=== PATIENT | male | born 1945 | race Caucasian/White ===

== ENCOUNTER → 2021-10-07 | Outpatient (CLI) | payer MEDICARE, OTHER ==
--- NOTE | 2021-10-07 14:55 | Diagnostic Imaging Report ---
INDICATION: Low back pain. TIME OF EXAM: 1:24 p.m. FINDINGS: Three views of the lumbar spine were obtained. Curvature of the lumbar spine is normal. There is grade 1 spondylolisthesis of L5 on S1. There may be pars defects at the L5-S1 as well. There is multilevel degenerative disc disease with variable disc space narrowing and marginal spurring. No fractures are seen. There is lower lumbar facet arthropathy. IMPRESSION: Lumbar spondylosis and facet arthropathy. There appear to be pars defects at L5-S1 level with grade 1 spondylolisthesis of L5 on S1. Dictated by: Dictated on workstation # [id number]
--- NOTE | 2021-10-07 15:03 | Diagnostic Imaging Report ---
INDICATION: Low back pain. TIME OF EXAM: 1:23 PM Single view of the pelvis was obtained. Femoral acetabular alignment is normal bilaterally. There is some superior joint space narrowing of the left hip compatible with degenerative change. The femoral heads and necks are intact. No fractures are seen. Rami are intact. SI joints and symphysis are not widened. IMPRESSION: Degenerative changes of the left hip. No acute bony abnormality is detected. Dictated by: Dictated on workstation # [id number]
== END ==
LOC: RAD FS 13:11
PROVIDERS: ATTEND Nurse Practitioner
DX: M47.816 Spondylosis without myelopathy or radiculopathy, lumbar region (principal); M43.17 Spondylolisthesis, lumbosacral region; M16.12 Unilateral primary osteoarthritis, left hip
CPT/HCPCS: 72100; 72170

== ENCOUNTER → 2022-06-12 | Outpatient (CLI) | payer MEDICARE, OTHER ==
--- NOTE | 2022-06-12 16:45 | Diagnostic Imaging Report ---
INDICATION: Hip pain. TECHNIQUE/COMPARISON: Frontal and lateral lumbar radiographs are compared to 10/07/2021. 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 Hdz-lumbar spondylosis and facet arthrosis are chronic. Disc space narrowing is greatest at the L5-S1 level. Vertebral statures are stable and normal. There has been no change. IMPRESSION: Stable chronic degenerative changes and grade 1 L5 on S1 anterolisthesis. Dictated by: Dictated on workstation # [id number]
--- NOTE | 2022-06-12 16:58 | Diagnostic Imaging Report ---
INDICATION: Pain. COMPARISON: 10/07/2021. FINDINGS: There are arthritic changes to the left greater than right hips as well as degenerative disease to the lower lumbar spine. No bony avulsion or other fracture pattern. No mass effect upon the air-containing abdominal/pelvic hollow viscus. IMPRESSION: Chronic degenerative changes but no acute pathology is apparent. Dictated by: Dictated on workstation # [id number]
--- NOTE | 2022-06-12 19:16 | Diagnostic Imaging Report ---
INDICATION: Left hip pain AP and frog-leg views of left hip are obtained. There is mild marginal spurring of the hip joint. There is also mild cortical irregularity at the greater trochanter which is likely chronic in nature. No acute fracture seen. Mild lucency involving the subarticular aspect of the humeral head is likely related to subchondral cyst. IMPRESSION: Degenerative-type findings involve the left hip. There is no evidence of acute osseous abnormality. Dictated by: Dictated on workstation # [id number]
== END ==
LOC: RAD FS 14:43
PROVIDERS: ATTEND Nurse Practitioner
DX: M16.12 Unilateral primary osteoarthritis, left hip (principal); M47.817 Spondylosis without myelopathy or radiculopathy, lumbosacral region; M43.17 Spondylolisthesis, lumbosacral region
CPT/HCPCS: 72100; 72170; 73502

== ENCOUNTER 2022-12-12 21:36 | Emergency (ER) | payer MEDICARE, OTHER ==
--- NOTE | 2022-12-12 21:56 | ED General ---
General Chief Complaint: Trauma-Non Activation Stated Complaint: COVID+ Source of Information: Patient, EMS History of Present Illness Date Seen by Provider: Dec 12, 2022 Time Seen by Provider: 21:36 Initial Comments 77-year-old male presenting with complaints of generalized weakness and fatigue. He states that this started yesterday after he had been doing yard work. He was having generalized body aches and so his performed a home COVID test on him this afternoon. He was positive for COVID on that test. He has had weakness to the point that he has fallen as he feels like his equilibrium is off. He then was too weak to get back up without assistance. He had to call EMS for lift assist x2 today and once last night. EMS brought him in to be evaluated for his generalized weakness and COVID. Timing/Duration: 24 Hours Severity: Moderate Modifying Factors: worse with Movement Associated Systoms: No Chest Pain; Cough; No Diaphoresis, No Fever/Chills, No Headaches; Loss of Appetite, Malaise; No Nausea/Vomiting, No Rash, No Seizure, No Shortness of Air, No Syncope; Weakness Allergies and Home Medications Allergies Coded Allergies: No Known Drug Allergies (Unverified , 12/12/22) Patient Home Medication List Home Medication List Reviewed: Yes Review of Systems Review of Systems Constitutional: No chills; dizziness; No fever; malaise, weakness EENTM: nose congestion Respiratory: cough Cardiovascular: No chest pain Gastrointestinal: loss of appetite; No nausea, No vomiting Genitourinary: No dysuria Musculoskeletal: muscle pain (generalized body aches) Skin: No rash Psychiatric/Neurological: Denies Headache; Weakness (generalized weakness with frequent falls at home) Past Cpsptuf-Tudsvi-Oezwhf Hx Immunizations Up To Date Influenza Vaccine Up-to-Date: Yes; Up-to-Date First/Initial COVID19 Vaccinat: 2020 Second COVID19 Vaccination Adama: 2020 Third COVID19 Vaccination Date: 2020 Past Medical History Surgery/Hospitalization HX: Hypertension, BPH, Hyperlipidemia Physical Exam Vital Signs Vital Signs - First Documented 12/12/22 21:40 Temp 37.3 Pulse 107 Resp 18 B/P (MAP) 134/76 (95) Pulse Ox 98 O2 Delivery Room Air Capillary Refill : Height, Weight, BMI Height: '" Weight: lbs. oz. kg; BMI Method: General Appearance: No Apparent Distress, WD/WN HEENT: PERRL/EOMI, Pharynx Normal, Moist Mucous Membranes Neck: Full Range of Motion, Normal Inspection, Non Tender, Supple Respiratory: Chest Non Tender, Lungs Clear, Normal Breath Sounds, No Accessory Muscle Use, No Respiratory Distress Cardiovascular: No Murmur, Normal Peripheral Pulses, Tachycardia Gastrointestinal: Normal Bowel Sounds, No Pulsatile Mass, Non Tender, Soft Rectal: Deferred Extremity: Normal Capillary Refill, Normal Inspection, No Pedal Edema Neurologic/Psychiatric: Alert, Oriented x3 Skin: Normal Color, Warm/Dry, Other (Superficial abrasions to bilateral knees from fall on stairs at home.) Progress/Results/Core Measures Suspected Sepsis SIRS Temperature: Pulse: Respiratory Rate: Laboratory Tests 12/12/22 21:50: White Blood Count 5.7 Blood Pressure / Mean: Laboratory Tests 12/12/22 21:50: Creatinine 1.58H, INR Comment 1.0, Platelet Count 153, Total Bilirubin 0.8 Results/Orders Lab Results Laboratory Tests Test 12/12/22 21:50 12/12/22 23:05 Range/Units White Blood Count 5.7 4.3-11.0 10^3/uL Red Blood Count 4.82 4.30-5.52 10^6/uL Hemoglobin 15.5 13.3-17.7 g/dL Hematocrit 45 40-54 % Mean Corpuscular Volume 94 80-99 fL Mean Corpuscular Hemoglobin 32 25-34 pg Mean Corpuscular Hemoglobin Concent 34 32-36 g/dL Red Cell Distribution Width 13.3 10.0-14.5 % Platelet Count 153 130-400 10^3/uL Mean Platelet Volume 11.0 9.0-12.2 fL Immature Granulocyte % (Auto) 1 % Neutrophils (%) (Auto) 71 42-75 % Lymphocytes (%) (Auto) 8 L 12-44 % Monocytes (%) (Auto) 21 H 0-12 % Eosinophils (%) (Auto) 0 0-10 % Basophils (%) (Auto) 0 0-10 % Neutrophils # (Auto) 4.0 1.8-7.8 10^3/uL Lymphocytes # (Auto) 0.4 L 1.0-4.0 10^3/uL Monocytes # (Auto) 1.2 H 0.0-1.0 10^3/uL Eosinophils # (Auto) 0.0 0.0-0.3 10^3/uL Basophils # (Auto) 0.0 0.0-0.1 10^3/uL Immature Granulocyte # (Auto) 0.0 0.0-0.1 10^3/uL Neutrophils % (Manual) 61 % Lymphocytes % (Manual) 6 % Monocytes % (Manual) 19 % Band Neutrophils 14 % Platelet Estimate NORMAL Blood Morphology Comment NORMAL Prothrombin Time 13.9 12.2-14.7 SEC INR Comment 1.0 0.8-1.4 Activated Partial Thromboplast Time 29 24-35 SEC Sodium Level 136 135-145 MMOL/L Potassium Level 4.0 3.6-5.0 MMOL/L Chloride Level 103 98-107 MMOL/L Carbon Dioxide Level 22 21-32 MMOL/L Anion Gap 11 5-14 MMOL/L Blood Urea Nitrogen 22 H 7-18 MG/DL Creatinine 1.58 H 0.60-1.30 MG/DL Estimat Glomerular Filtration Rate 44 BUN/Creatinine Ratio 14 Glucose Level 117 H 70-105 MG/DL Calcium Level 9.7 8.5-10.1 MG/DL Corrected Calcium 9.6 8.5-10.1 MG/DL Total Bilirubin 0.8 0.1-1.0 MG/DL Aspartate Amino Transf (AST/SGOT) 44 H 5-34 U/L Alanine Aminotransferase (ALT/SGPT) 18 0-55 U/L Alkaline Phosphatase 45 40-136 U/L Troponin I < 0.30 <0.30 NG/ML C-Reactive Protein 4.18 H <0.50 MG/DL Total Protein 6.5 6.4-8.2 GM/DL Albumin 4.1 3.2-4.5 GM/DL Urine Color DARK YELLOW Urine Clarity SL CLOUDY Urine pH 5.0 5-9 Urine Specific Spencer >=1.030 1.016-1.022 Urine Protein 2+ H NEGATIVE Urine Glucose (UA) NEGATIVE NEGATIVE Urine Ketones TRACE H NEGATIVE Urine Nitrite NEGATIVE NEGATIVE Urine Bilirubin NEGATIVE NEGATIVE Urine Urobilinogen 0.2 < = 1.0 MG/DL Urine Leukocyte Esterase NEGATIVE NEGATIVE Urine RBC (Auto) 3+ H NEGATIVE Urine RBC 0-2 /HPF Urine WBC 0-2 /HPF Urine Squamous Epithelial Cells NONE /HPF Urine Renal Epithelial Cells 0-2 /HPF Urine Crystals PRESENT H /LPF Urine Amorphous Sediment LARGE ART URATES H /LPF Urine Bacteria NEGATIVE /HPF Urine Casts PRESENT /LPF Urine Hyaline Casts 10-25 H /LPF Urine Granular Casts 0-2 H /LPF Urine White Blood Cell Casts RARE H /LPF Urine Mucus LARGE H /LPF Urine Culture Indicated NO My Orders Orders - EBONIE KIRK MD Monitor-Rhythm Ecg Trace Only (12/12/22 21:52) Ed Iv/Invasive Line Start (12/12/22 21:52) Cbc With Automated Diff (12/12/22 21:52) Comprehensive Metabolic Panel (12/12/22 21:52) Crp Fs (12/12/22 21:52) Troponin I Fs (12/12/22 21:52) Protime With Inr (12/12/22 21:52) Partial Thromboplastin Time (12/12/22 21:52) Ekg Tracing (12/12/22 21:52) Ns Iv 1000 Ml (Sodium Chloride 0.9%) (12/12/22 22:00) Ua Culture If Indicated (12/12/22 21:52) Chest 1 View Ap/Pa Only (12/12/22 21:52) Ct Head Wo (12/12/22 21:56) Manual Differential (12/12/22 21:50) Ns Iv 1000 Ml (Sodium Chloride 0.9%) (12/12/22 23:47) Albuterol Inhaler (Albuterol) (12/12/22 23:47) Vital Signs/I&O 12/12/22 12/13/22 21:40 01:40 Temp 37.3 Pulse 107 90 Resp 18 20 B/P (MAP) 134/76 (95) 121/94 Pulse Ox 98 92 O2 Delivery Room Air Room Air Capillary Refill : Progress Note #1: Progress Note Potential diagnosis of dehydration, COVID 19 infection, electrolyte imbalance, sinusitis, acute stroke. Establish peripheral IV access and send labs for blood count, comprehensive metabolic profile, cardiac enzymes, coagulation factors. Urinalysis to help look for hydration and infection. Administer normal saline 1 L IV fluid bolus for hydration. CT scan of the head without contrast since he has dizziness and feels like his equilibrium is off when he gets up to walk and move around. This may just be related to hydration and the COVID infection but he could have sinus fluid buildup as well. Single view chest x-ray looking for signs of pneumonia or infiltrate with his new diagnosis of COVID from today. Progress Note #2: Progress Note Complete blood count was normal with white blood cell count of 5.7. He was not showing anemia as his hemoglobin was 15.5. No acute significant abnormality on his comprehensive metabolic profile other than having mild elevation of his creatinine to 1.58. This would go along with dehydration. He had normal coagulation factors without signs of coagulopathy. His troponin was negative at less than 0.3. On my personal review and interpretation of his 1 view chest x- ray he has increased patchy bilateral infiltrates consistent with COVID infection. His CT scan of the head without IV contrast in my opinion did not show any acute mass, stroke, hemorrhage. His electrocardiogram shows a normal sinus rhythm with occasional premature supraventricular complexes. He had no acute ST elevation. There was no prior tracing available for comparison. Progress Note #3: Time: 23:32 Progress Note Patient was able to provide UA and now waiting on test result. He has had stable blood pressure with 133/67 currently. Heart rate shows sinus rhythm with rate of 88-92 on cardiac telemetry monitoring. He has had no diarrhea or vomiting here in the ED. Reports feeling a little better after IVF but overall still feels weak. He is maintaining oxygen saturation 96 to 98% on room air. Progress Note #4: Time: 23:52 Progress Note UA shows increased specific gravity of >1.030 consistent with dehydration. On recheck of patient his O2 sat is remaining in 95-97% range on room air. With him having some patchy opacities on chest xray consistent with Covid infection will order albuterol inhaleter and spacer to use 2 puffs every 4 hours as needed for cough/shortness of breath. 2nd Liter of NS IVF bolus ordered for additional hydration and patient was also drinking water. After fluids infuse will see how he does trying to get up to walk here in the ED. Anticipate discharge to home as he is not hypoxic or having severe electrolyte imbalance. Counseled that he should wear a mask for 10 days and try to quarantine for the first 5 days of his symptoms. Try to rest and drink plenty of fluids. Since he was dehydrated he needs to drink even more fluids and he had been drinking throughout the day. His appetite should eventually come back but if he is at [place] drinking he can stay hydrated to help keep his strength up. He could consider protein or nutrition shakes to try and get some calories without putting a lot on his stomach. Progress Note #5: Time: 00:48 Progress Note On recheck of the patient after second liter of IV fluids had infused and he had been drinking water he was able to stand and walk in the room. He felt like his equilibrium and balance was doing better. He still required a walker or person to help steady him as he walked but states that he felt a lot better than when he had arrived in the emergency department. He was provided with an inhaler and spacer to use to try and help with his cough and shortness of breath. Advised that he needed to drink more fluids to be better hydrated. Considered prescription for Paxlovid however patient was not sure of his medication names so unable to verify that he did not have any medicines that were contraindicated. He advised [facility] during the day to see if that might be an option. They would at least know for sure about his medications and be able to verify that he did not have any medicines that were contraindicated or would need to be held while he took the Paxlovid for his COVID. Advised that he needed to stay on the lower level of his home and try to avoid taking the stairs until his strength is improved. As he was doing better walking and getting around his came to pick him up and he used his walker to get out to the car. He was anxious to go home and was ambulating well with a walker without difficulty. Stressed importance of continuing to use the walker at home as well as resting and increasing fluid intake. ECG Initial ECG Impression Date: Dec 12, 2022 Initial ECG Impression Time: 22:25 Initial ECG Rate: 95 Initial ECG Rhythm: Normal Sinus Initial ECG Comparisson: No Previous ECG Available Comment On my personal interpretation and review of his electrocardiogram shows a normal sinus rhythm with occasional premature supraventricular complexes and a heart rate of 95 bpm. He has no acute ST elevation. FL interval 156 ms. QT interval 335 ms with a QTc interval 388 ms. He has no prior tracing available for comparison. Diagnostic Imaging Diagonstic Imaging: Xray Plain Films/CT/US/NM/MRI: chest Reviewed: Reviewed by Me Diagonstic Imaging: CT Plain Films/CT/US/NM/MRI: head Comments CT scan of the head without IV contrast Impression mild periventricular white matter changes, likely related to microangiopathy. Read by radiologist Dr. Remigio Zavala MD at [phone] and faxed at [phone]. Reviewed: Reviewed by Me (I reviewed the radiologist report on the CT head without IV contrast at [id number]) Departure Impression Primary Impression: COVID-19 virus infection Additional Impressions: Generalized weakness Dehydration Disposition: 01 HOME, SELF-CARE Condition: Stable Departure-Patient Inst. Decision time for Depature: 01:06 Referrals: MARQUEZ BAKER MD (PCP/Family) Primary Care Physician Patient Instructions: COVID-19 After You Have Been Vaccinated, Dehydration, Adult ED, Fatigue ED, How to Use a Metered Dose Inhaler ED, How to Use a Spacer, Recovery After COVID-19 Add. Discharge Instructions: Try to stay well-hydrated and drink more fluids than what you have been drinking. Use the albuterol inhaler with the spacer with 2 puffs with the spacer every 4 hours as needed for shortness of breath and cough. Avoid using the stairs until your strength is returning. Stay on the lower level of your home to help limit risk of falling on the stairs. You should try to isolate and quarantine for next 5 days and wear a mask for the next 10 days when around others. All discharge instructions reviewed with patient and/or family. Voiced understanding. EBONIE KIRK MD Dec 12, 2022 21:56
[2022-12-12 21:58] LABS: BASOPHILS % (AUTO) 0 % (0-10); EOSINOPHILS % (AUTO) 0 % (0-10); HEMATOCRIT 45 % (40-54); HEMOGLOBIN 15.5 g/dL (13.3-17.7); LYMPHOCYTES # (AUTO) 0.4 10^3/uL (1.0-4.0); LYMPHOCYTES % (AUTO) 8 % (12-44); MEAN CORPUSCULAR HEMOGLOBIN 32 pg (25-34); MEAN CORPUSCULAR HGB CONC 34 g/dL (32-36); MEAN CORPUSCULAR VOLUME 94 fL (80-99); MONOCYTES # (AUTO) 1.2 10^3/uL (0.0-1.0); MONOCYTES % (AUTO) 21 % (0-12); NEUTROPHILS % (AUTO) 71 % (42-75); PLATELET COUNT 153 10^3/uL (130-400); WHITE BLOOD COUNT 5.7 10^3/uL (4.3-11.0)
[2022-12-12] MEDS ORDERED: NS IV 1000 ML 1,000 ML IV SCH (22:00)
[2022-12-12 22:19] LABS: BAND NEUTROPHILS 14 %; LYMPHOCYTES % (MANUAL) 6 %; MONOCYTES % (MANUAL) 19 %; NEUTROPHILS % (MANUAL) 61 %; PLATELET ESTIMATE NORMAL; PROTHROMBIN TIME PATIENT 13.9 SEC (12.2-14.7); RBC MORPH NORMAL
[2022-12-12 22:20] LABS: ALANINE AMINOTRANSFERASE 18 U/L (0-55); ALBUMIN 4.1 GM/DL (3.2-4.5); ALKALINE PHOSPHATASE 45 U/L (40-136); BILIRUBIN,TOTAL 0.8 MG/DL (0.1-1.0); BUN/CREATININE RATIO 14; CALCIUM 9.7 MG/DL (8.5-10.1); CARBON DIOXIDE 22 MMOL/L (21-32); CHLORIDE 103 MMOL/L (98-107); CREATININE SERUM 1.58 MG/DL (0.60-1.30); GFR ESTIMATED 44; GLUCOSE 117 MG/DL (70-105); SODIUM 136 MMOL/L (135-145); TOTAL PROTEIN 6.5 GM/DL (6.4-8.2)
[2022-12-12 23:20] LABS: BILIRUBIN,URINE NEGATIVE (NEGATIVE); CLARITY,URINE SL CLOUDY; GLUCOSE, URINE (UA) NEGATIVE (NEGATIVE); KETONES,URINE TRACE (NEGATIVE); LEUKOCYTE ESTERASE ,URINE NEGATIVE (NEGATIVE); NITRITE,URINE NEGATIVE (NEGATIVE); PROTEIN,URINE 2+ (NEGATIVE)
[2022-12-12 23:32] LABS: COLOR,URINE DARK YELLOW
[2022-12-12 23:34] LABS: BACTERIA,URINE NEGATIVE /HPF; RBC,URINE 0-2 /HPF; WBC,URINE 0-2 /HPF
[2022-12-12 23:35] LABS: AMORPHOUS SEDIMENT,UR LARGE AMOR URATES /LPF; GRANULAR CASTS,URINE 0-2 /LPF; RENAL EPITHELIAL CELLS,URINE 0-2 /HPF; WHITE BLOOD CELL CASTS, URINE RARE /LPF
[2022-12-12] MEDS ORDERED: RT-ALBUTEROL HFA 8.5 GM INHALER IH STA (23:47)
[2022-12-12] MEDS ORDERED: NS IV 1000 ML 1,000 ML IV STA (23:47)
[2022-12-13 01:40] VITALS: BP 121/94
--- NOTE | 2022-12-13 05:58 | Diagnostic Imaging Report ---
INDICATION: Dizziness and frequent falls. TECHNIQUE: Multiple contiguous axial images were obtained through the brain without the use of intravenous contrast. Auto Exposure Controls were utilized during the CT exam to meet ALARA standards for radiation dose reduction. There is no prior head CT for comparison. There are diffuse atrophic changes. There is no subdural or epidural collection. There is mild chronic changes in the deep white matter compatible with chronic ischemia. There is no acute territorial ischemia. There are vascular calcifications noted in the distal vertebral arteries and carotid siphons. Calvarial windows are unremarkable. IMPRESSION: Mild atrophy and chronic change in deep white matter. No acute intracranial finding. Dictated by: Dictated on workstation # [id number]
--- NOTE | 2022-12-13 07:35 | Diagnostic Imaging Report ---
INDICATION: Cough, Covid positive and weakness. Frontal chest obtained at 10:09 p.m. FINDINGS: Heart and mediastinal silhouette are normal in appearance. The lungs are clear. There is no pneumothorax or pleural fluid. IMPRESSION: Negative chest. Dictated by: Dictated on workstation # [id number]
== END 2022-12-13 01:48 | disposition home or self-care (01) ==
LOC: EDUNIT# 21:36 → ER FS 21:38
DX: U07.1 COVID-19 (principal); S80.212A Abrasion, left knee, initial encounter; S80.211A Abrasion, right knee, initial encounter; E86.0 Dehydration; R53.1 Weakness; R79.89 Other specified abnormal findings of blood chemistry; R06.02 Shortness of breath; R05.9 Cough, unspecified; M79.10 Myalgia, unspecified site; R91.8 Other nonspecific abnormal finding of lung field; Z73.0 Burn-out; W10.9XXA Fall (on) (from) unspecified stairs and steps, initial encounter; Y92.009 Unspecified place in unspecified non-institutional (private) residence as the place of occurrence of the external cause
CPT/HCPCS: 36415; 70450; 71045; 80053; 81000; 84484; 85007; 85027; 85610; 85730; 86141; 93005; 93041